=== PATIENT | male | born 1975 | race Caucasian/White ===

== ENCOUNTER 2016-10-28 16:17 | Outpatient (CLI) ==
[2016-10-28 16:32] LABS: BILIRUBIN,URINE Negative (NEGATIVE); KETONES,URINE Negative (NEGATIVE); LEUKOCYTE ESTERASE ,URINE Negative (NEGATIVE); NITRITE,URINE Negative (NEGATIVE); PH,URINE 5.5 (5-9); PROTEIN,URINE Negative (NEGATIVE); URINE, BLOOD Negative (NEGATIVE)
[2016-10-28 16:41] LABS: ADD URINE MICROSCOPIC NO
== END 2016-10-28 16:18 | disposition home or self-care (01) ==
LOC: LAB 16:17
PROVIDERS: ATTEND Nurse Practitioner Family
DX: R36.9 Urethral discharge, unspecified (principal); Z00.00 Encounter for general adult medical examination without abnormal findings; Z20.2 Contact with and (suspected) exposure to infections with a predominantly sexual mode of transmission
CPT/HCPCS: 36415; 80074; 81001; 86695; 86696; 86701; 87800

== ENCOUNTER 2017-04-11 14:58 | Outpatient (CLI) | END 2017-04-11 14:59 | disposition home or self-care (01) | LOC: RHC-LAB 14:58 | PROVIDERS: ATTEND Emergency Medicine | DX: J06.9 Acute upper respiratory infection, unspecified (principal); R68.89 Other general symptoms and signs | CPT/HCPCS: 87651; 87804 ==

== ENCOUNTER 2017-05-26 14:15 | Outpatient (CLI) ==
--- NOTE | 2017-05-26 14:34 | DI ---
Exam: Three x-rays of the right hand. Comparison: None available. Reason for exam: Injury. FINDINGS: There is a displaced fracture of the right second metacarpal head. No other fracture or ma lalignment is seen. Mild degenerative disease is seen with joint space narrowing. Impression: Displaced fracture of the right second metacarpal head. Report faxed at [id number] hours on 05/26/2017
== END 2017-05-26 14:16 | disposition home or self-care (01) ==
LOC: RAD 14:15
PROVIDERS: ATTEND Emergency Medicine
DX: S69.91XA Unspecified injury of right wrist, hand and finger(s), initial encounter (principal)

== ENCOUNTER 2018-07-19 16:07 | Outpatient (CLI) | END 2018-07-19 16:08 | disposition home or self-care (01) | LOC: RHC-LAB 16:07 | PROVIDERS: ATTEND Nurse Practitioner Family | DX: R30.0 Dysuria (principal); Z72.0 Tobacco use | CPT/HCPCS: 81001; 87800 ==